=== PATIENT | female | born 1975 | race Caucasian/White ===

== ENCOUNTER → 2020-05-25 | Outpatient (CLI) | payer MEDICARE, OTHER ==
[~2020-05-25] MED LIST: AUGMENTIN 875-1 EACH PO; AZO URINARY TR1 EAC1 PO; BACLOFEN10 MG PO; BUTALB-ACETAMI1 EACH PO; CIPRO500 MG PO; CIPROFLOXACIN500 M1 PO; COPAXONE40 MG/1 ML SQ; CYMBALTA60 MG PO; DICLOFENAC POTA50 MG PO; DICLOFENAC SODI50 MG PO; DITROPAN XL 5 MG5 MG PO; GABAPENTIN300 MG PO; HYDROCHLOROTH12.5 MG PO; IMITREX100 MG PO; KEFLEX CAP 500500 MG PO; LACTULOSE10 GM/151 PO; LAMICTAL TAB 2525 MG PO; LAMOTRIGINE25 MG PO; LINZESS145 MCG PO; MACROBID 100 M100 MG PO; MELATONIN10 M2 PO; MELATONIN2.5 MG PO; MELATONIN3 MG PO; METHYLPHENIDATE10 MG PO; MYCOSTATIN100000 UTS PO; NALTREXONE PO; NAPROSYN500 MG PO; NEURONTIN600 MG PO; NORCO 5-325 TA1 EACH PO; NUEDEXTA 20-101 EACH PO; OMNICEF 300 MG300 MG PO; PANTOPRAZOLE SO40 MG PO; PROBIOTIC PLUS1 EACH PO; PYRIDIUM100 MG PO; PYRIDIUM200 MG PO; RITALIN LA20 MG PO; TERAZOL PV; VANCOMYCIN HCL125 MG PO; VITAMIN D 40400 UNIT PO; VITAMIN D-40400 UNIT PO; [UNRECOGNIZED DRUG - OTHER] PO
[2020-05-25 14:17] LABS: HEMOGLOBIN 12.7 gm/dl (12.3-15.3); RED BLOOD COUNT 4.17 M/UL (4.00-5.10); WHITE BLOOD COUNT 5.6 K/UL (4.5-11.0)
== END ==
LOC: OPSV2 12:30
PROVIDERS: Obstetrics & Gynecology
DX: Z01.812 Encounter for preprocedural laboratory examination (principal); N39.41 Urge incontinence
CPT/HCPCS: 36415; 81001; 85025

== ENCOUNTER → 2020-05-27 | Day surgery (SDC) | payer MEDICARE, OTHER | END | disposition home or self-care (01) | LOC: OR 09:16 | DX: N39.41 Urge incontinence (principal); G35 Multiple sclerosis; F31.30 Bipolar disorder, current episode depressed, mild or moderate severity, unspecified; F17.210 Nicotine dependence, cigarettes, uncomplicated; I95.1 Orthostatic hypotension; M70.72 Other bursitis of hip, left hip; K58.9 Irritable bowel syndrome, unspecified; R53.82 Chronic fatigue, unspecified; R91.1 Solitary pulmonary nodule; F41.9 Anxiety disorder, unspecified; Z82.0 Family history of epilepsy and other diseases of the nervous system; Z82.49 Family history of ischemic heart disease and other diseases of the circulatory system; Z82.61 Family history of arthritis; Z90.710 Acquired absence of both cervix and uterus; Z98.51 Tubal ligation status; Z20.822 Contact with and (suspected) exposure to COVID-19; Z79.899 Other long term (current) drug therapy; Z87.440 Personal history of urinary (tract) infections | CPT/HCPCS: C1769; J0585; J0690; J2250; J2405; J2704; J2795; J3010; J7120 ==

== ENCOUNTER → 2020-09-02 | Outpatient (CLI) | payer MEDICARE, OTHER | LOC: KOH-I 14:16 | DX: R91.8 Other nonspecific abnormal finding of lung field (principal); N20.0 Calculus of kidney | CPT/HCPCS: 71250 ==

== ENCOUNTER → 2020-09-07 | Outpatient (CLI) | payer MEDICARE, OTHER | LOC: HEART 5 15:59 | DX: J43.9 Emphysema, unspecified (principal) | CPT/HCPCS: 94060 ==

== ENCOUNTER → 2020-12-21 | Outpatient (CLI) | payer MEDICARE, OTHER | LOC: KOH-I 15:30 | DX: R14.0 Abdominal distension (gaseous) (principal); R10.9 Unspecified abdominal pain; R00.2 Palpitations | CPT/HCPCS: 74176 ==

== ENCOUNTER → 2021-03-18 | Outpatient (CLI) | payer MEDICARE, OTHER ==
[~2021-03-18] MED LIST changes: +ALBUTEROL INH; +ANTIVERT 12.512.5 MG PO; +BREO ELLIPTA 21 EACH INH; +ESTROVEN; +FIBER625 MG PO; +GLUCOSAMINE1000 MG PO; +LASIX TAB 20 MG20 MG PO; +OMEPRAZOLE40 MG PO; +TIZANIDINE HCL2 MG PO; +TURMERIC; +ULTRAM50 MG PO; +VITAMIN D3125 MCG PO
[2021-03-18 14:45] LABS: HEMOGLOBIN 12.2 gm/dl (12.3-15.3); RED BLOOD COUNT 3.89 M/UL (4.00-5.10); WHITE BLOOD COUNT 7.7 K/UL (4.5-11.0)
== END ==
LOC: OPSV2 12:30
PROVIDERS: Obstetrics & Gynecology
DX: Z01.812 Encounter for preprocedural laboratory examination (principal); R32 Unspecified urinary incontinence
CPT/HCPCS: 80048; 81001; 85025

== ENCOUNTER → 2021-03-24 | Day surgery (SDC) | payer MEDICARE, OTHER ==
[~2021-03-24] VITALS: Ht 165.1 cm; Wt 63.5 kg
== END | disposition home or self-care (01) ==
LOC: OR 07:30
DX: N39.41 Urge incontinence (principal); G35 Multiple sclerosis; N32.81 Overactive bladder; N39.0 Urinary tract infection, site not specified; Z98.51 Tubal ligation status; N89.8 Other specified noninflammatory disorders of vagina; Z20.822 Contact with and (suspected) exposure to COVID-19; J43.9 Emphysema, unspecified; K58.9 Irritable bowel syndrome, unspecified; G43.909 Migraine, unspecified, not intractable, without status migrainosus
CPT/HCPCS: 93005; C1769; J0585; J2001; J2250; J2704; J2795; J3010; J7120

== ENCOUNTER → 2021-12-21 | Outpatient (CLI) | payer MEDICARE, OTHER | LOC: RAD 16:20 | DX: M25.561 Pain in right knee (principal) | CPT/HCPCS: 73564 ==